=== PATIENT | male | born 2000 | race Caucasian/White ===

== ENCOUNTER 2018-03-28 19:41 | Emergency (ER) | payer SELFPAY ==
[~2018-03-28] VITALS: Ht 172.7 cm; Wt 65.5 kg
[2018-03-28 20:11] LABS: BASOPHILS # (AUTO) 0.02 x10^3/uL (0-0.3); BASOPHILS % (AUTO) 0 % (0-1); EOSINOPHILS # (AUTO) 0.05 x10^3/uL (0-0.8); EOSINOPHILS % (AUTO) 1 % (1-7); LYMPHOCYTES # (AUTO) 2.68 x10^3/uL (1-6.1); LYMPHOCYTES % (AUTO) 47 % (22-44); MD NO; MEAN CORPUSCULAR HGB CONC 34.4 g/dL (33.2-36.2); MEAN CORPUSCULAR VOLUME 92.9 fL (81-97); MONOCYTES # (AUTO) 0.97 x10^3/uL (0-1.4); MONOCYTES % (AUTO) 17 % (2-9); NEUTROPHILS # (AUTO) 2.02 x10^3/uL (1.8-8.0); NEUTROPHILS % (AUTO) 35 % (42-75); PLATELET COUNT 213 x10^3/uL (130-400); RED BLOOD COUNT 4.65 x10^6/uL (4.38-5.82); RED CELL DISTRIBUTION WIDTH 12.7 % (9.4-14.8)
[2018-03-28 20:20] LABS: ALANINE AMINOTRANSFERASE 33 U/L (12-78); ALBUMIN 4.2 g/dL (3.4-5.0); ANION GAP 8 mmol/L (5-15); CALCIUM 8.8 mg/dL (8.5-10.1); CHLORIDE 106 mmol/L (98-107); CREATININE 1.05 mg/dL (0.7-1.3)
[2018-03-28 20:22] LABS: ALKALINE PHOSPHATASE 73 U/L (45-117); BILIRUBIN,TOTAL 0.7 mg/dL (0.2-1.0); TOTAL PROTEIN 8.4 g/dL (6.4-8.2)
[2018-03-28] MEDS ORDERED: maalox/diphenh/lido/sucralfate 5 ML PO PRN (20:30)
[2018-03-28] MEDS ORDERED: PLEASE ENTER ALLERGIES MC SCH (21:00)
[2018-03-28] MEDS ORDERED: [UNRECOGNIZED DRUG - OTHER] (21:08)
[2018-03-28 22:10] LABS: MICROSCOPIC NOT IND
[2018-03-28 22:13] LABS: CULTURE INDICATED? NO
[2018-03-28 22:31] VITALS: BP 112/74
== END 2018-03-28 23:18 | disposition home or self-care (01) ==
LOC: ED 20:32
DX: K21.9 Gastro-esophageal reflux disease without esophagitis (principal); K12.0 Recurrent oral aphthae
CPT/HCPCS: 36415; 71046; 80053; 81003; 83690; 85025; 93005; 99284